=== PATIENT | female | born 1995 ===

== ENCOUNTER 2023-03-12 11:23 | Inpatient (IN) ==
[2023-03-16] MEDS ORDERED: LACTATED RINGER'S 1,000 ML IV PRN (17:12)
[2023-03-16] MEDS ORDERED: LIDOCAINE 1% LOCAL 20 ML VIAL INFIL PRN (17:12)
[2023-03-16] MEDS ORDERED: OXYTOCIN 30 UNITS/500 ML BAG IV PRN ×2 (17:12)
[2023-03-16 17:49] LABS: Hematocrit (blood only) 34.9 % (37.0-47.0); Hemoglobin 12.2 g/dl (12.0-16.0); Mean Corpuscular Hemoglobin 31.4 pg (25.0-34.0); Mean Corpuscular Volume 89.9 fL (80.0-100.0); Mean Platelet Volume 12.3 fL (9.4-12.4); Platelet Count 196 K/uL (130-400); RDW Coefficient of Variation 12.3 % (11.5-14.5); Red Blood Count 3.88 M/uL (4.20-5.40); White Blood Count 9.42 K/ul (4.8-10.8)
--- NOTE | 2023-03-16 17:58 | History & Physical Report ---
Date of Service March 16, 2023 Assessment & Plan (1) Polyhydramnios affecting : Plan: Admit for induction of labor. Discussed plans with patient. She is agreeable. Labs/EFM/toco. IV. Will start pitocin . Admission and Anticipated Discharge Date Admission Date: March 16, 2023 History of Present Illness Chief Complaint: IOL - polyhydramnios Primary Care Provider: EMILY Graham 28yo @ 41 0, was at office today for NST - not reactive, therefore BPP was done. Finding of 10cm DVP, therefore recommended for induction of labor today for polyhydramnios. Allergies Allergy/AdvReac Type Severity Reaction Status Date / Time No Known Allergies Allergy Verified 03/16/23 14:53 Home Medications Medication Instructions Recorded Confirmed Type prenat.vits,toni,qyf-tatp-aspme 1 tab PO DAILY 07/23/22 03/16/23 History Patient History Medical History (Updated 03/16/23 @ 17:59 by Luly Davila, ) No pertinent past medical history Surgical History S/P dilation and curettage S/P wisdom tooth extraction Social History (Updated 03/16/23 @ 17:02 by Meaghan Reyes RN) Smoking Status: Never smoker Do You Dip or Chew Tobacco: No; Hx Alcohol Use: No Hx Substance Use: No Preferred Language: Vietnamese Visual Impairment: No Limitations Hearing Ability: Normal Beliefs That Will Affect Care: None marital status: marital status details: Gerald (28) [phone] Current Living Situation: Spouse Current Living Situation Comment: lives with spouse, 2 children, 1 cat, pt changing litter current occupational status: employed current occupation: [employer] Feels Safe at Home: Yes Safety Concerns: Feels Safe At This Time Diet: regular Gender Identity: Female Review of Systems All systems reviewed & are unremarkable except as noted in HPI & below Physical Exam Physical Exam: 3-4/50/high, bulging membranes FHT Cat 1 [place] Q 2 min Constitutional: WD/WN, vitals as above Respiratory: normal respiratory effort, lungs clear to auscultation no respiratory distress Cardiovascular: Rate/Rhythm: regular rate and regular rhythm Gastrointestinal (Abdomen): Inspection/Auscultation: abdomen normal to inspection Percussion/Palpation: abdomen soft; abdomen nontender Gravid. No s/s chorio or abruption. Skin: no rashes, warm and dry Psychiatric: A+Ox3, euthymic affect Results & Data Vital Signs (Past 12 Hours) Vital Signs Temp Pulse Resp BP 03/16/23 16:56 36.9 C 80 20 118/73 Coding Level of Care Code None Diagnoses Polyhydramnios affecting O40.9XX0
--- NOTE | 2023-03-16 20:35 | Labor Progress Brief Note ---
Date of Service March 16, 2023 Subjective Uncomfortable with ctx. FHT 140s, early decels with ctx. SVE 5-6/100/-2, AROM during cervix exam for meconium stained fluid Anticipate . Assessment & Plan Admission and Anticipated Discharge Date Admission Date: March 16, 2023 Results & Data Vital Signs (Past 12 Hours) Vital Signs Temp Pulse Resp BP 03/16/23 18:05 36.9 C 20 03/16/23 20:19 75 03/16/23 20:19 129/74 03/16/23 20:03 67 03/16/23 20:03 97/54 L 03/16/23 19:03 18 03/16/23 19:03 36.5 C 18 03/16/23 19:50 70 03/16/23 19:50 117/76 03/16/23 19:34 82 03/16/23 19:34 120/67 03/16/23 19:18 78 03/16/23 19:18 112/67 03/16/23 19:03 85 03/16/23 19:03 118/81 03/16/23 18:49 75 03/16/23 18:49 114/77 03/16/23 18:34 71 03/16/23 18:34 110/59 L 03/16/23 18:19 85 03/16/23 18:19 116/81 03/16/23 18:03 87 03/16/23 18:03 126/74 03/16/23 16:56 36.9 C 80 20 118/73 Coding Level of Care Code None Diagnoses
[2023-03-16] MEDS ORDERED: SODIUM CHLORIDE 0.9% PF INJ 10 ML VIAL ONE (21:15)
[2023-03-16] MEDS ORDERED: ePHEDrine sulfate 50 MG/ML AMP ONE (21:15)
[2023-03-16] MEDS ORDERED: fentaNYL citrate PF 100 MCG/2 ML VIAL ONE (21:15)
[2023-03-16] MEDS ORDERED: fentaNYL 2MCG/ML ROPIVACAINE 1.25MG/ML 100 ML BAG EPI ONE (21:15)
[2023-03-16] MEDS ORDERED: LIDOCAINE 2%/EPINEPHRINE 1:200,000 20 ML PF ONE (21:15)
[2023-03-16] MEDS ORDERED: BUPIVACAINE 0.25% PF 30 ML VIAL ONE (21:15)
--- NOTE | 2023-03-16 21:37 | Delivery Summary ---
Vaginal Delivery Summary Date of Service March 16, 2023 Vaginal Delivery Summary [facility] Vaginal Delivery Summary: Pre-delivery diagnoses: 28yo @ 41 0/7, IOL for polyhydramnios, post- dates Post-delivery diagnoses: same Procedure: spontaneous vaginal delivery Surgeon: Luly Davila DO Complications: none Findings: Viable female . Apgars: . Weight pending, please see nursery records. Estimated blood loss: 300ml Description of delivery: The patient progressed to complete without anesthesia. She then began to push. She spontaneously vaginally delivered a viable from the cephalic presentation. The head delivered in DEBRA position. Nuchal x 4, easily reduced. The anterior shoulder delivered, followed by the posterior shoulder, followed by the body. The baby was placed on mother's abdomen and a spontaneous cry was heard. Delayed cord clamping was employed, and the cord was doubly clamped and cut. Cord blood was obtained. The placenta was delivered spontaneously intact with a 3-vessel cord. The uterus and vagina were swept of clots and debris. IV pitocin was given. The uterus became firm. The cervix, vagina, and perineum were inspected and no lacerations were noted. Excellent hemostasis was observed. The mother and baby are recovering in stable and good condition in the room. Sponge and instrument counts were correct x 2. Luly Davila DO [facility] Vaginal Delivery Charge Vaginal Delivery Codes: 76076 global code for the antepartum, delivery, and post- Delivery Type Details: [facility]
[2023-03-17] MEDS ORDERED: BENZOCAINE 20% SPRY 85 APPLN/85 GM CAN EXT PRN (00:04)
[2023-03-17] MEDS ORDERED: HYDROCORTISONE ACETATE 25 MG SUPP PR PRN (00:04)
[2023-03-17] MEDS ORDERED: IBUPROFEN 600 MG TAB PO PRN (00:04)
[2023-03-17] MEDS ORDERED: OXYTOCIN 30 UNITS/500 ML BAG IV PRN (00:04)
[2023-03-17] MEDS ORDERED: ACETAMINOPHEN 325 MG TAB PO PRN (00:04)
[2023-03-17] MEDS ORDERED: oxyCODONE/ACETAMINOPHEN 5mg/325mg TAB PO PRN (00:04)
[2023-03-17] MEDS ORDERED: bisacodyL 10 MG SUPP PR PRN (00:04)
[2023-03-17] MEDS ORDERED: DIPHTHERIA/TETANUS/PERTUSSIS Vaccine (Tdap, Age 7+yrs) 0.5mL SYR/VL IM ONE (00:04)
--- NOTE | 2023-03-17 06:58 | Obstetrical Progress Note ---
Date of Service <Melissa Newsome MD - Last Filed: 03/17/23 08:16> March 17, 2023 Assessment & Plan <Melissa Newsome MD - Last Filed: 03/17/23 08:16> (1) Spontaneous vaginal delivery: Patient with the above mentioned history and findings was evaluated at bedside and found awake, alert, oriented in all spheres, afebrile, and in no acute distress. Due to physical exam findings of left lower extremity pain along with history of , will order left LE venous doppler to r/o DVT. Otherwise, patient is doing well clinically. Therefore, will encourage ambulation as tolerated and will resume regular diet. Will continue monitoring pain levels and management with current regimen. Patient is encouraged to breastfeed and to notify changes in normal lochia such as excessive bleeding (using more than 1 pad per hour), foul smell, or purulent appearance. All questions were answered. <Luly Davila DO - Last Filed: 03/17/23 08:56> (1) Spontaneous vaginal delivery: Subjective <Melissa Newsome MD - Last Filed: 03/17/23 08:16> Alanis is a 28 y/o female who is now PPD # 1 following at 41 0/7 weeks. Reports feeling well overall this morning. Refers moderate abdominal cramping & 3/10 pain well managed on analgesics. Voiding spontaneously. Tolerating meals overnight and able to ambulate some. She has not passed gas or had a bowel movement yet.. Some persistent lochia with some improvement this morning. . She is blood type O positive with Hb at 12.3. She is GBS negative and rubella immune. Constitutional: no fever, no chills or no sweats Denies shortness of breath or difficulty breathing Cardiovascular: no chest pain or no palpitations Breast: no breast pain Genitourinary (female): no dysuria Neurologic: no headache(s) Denies changes in vision Physical Exam <Melissa Newsome MD - Last Filed: 03/17/23 08:16> General: Alert. Oriented to person, time, and place. Afebrile. No acute distress. Eyes: pupils equal and reactive to light bilaterally, extraocular movements intact. Cardiac: Regular rate and rhythm, no murmurs/rubs/gallops. Respiratory: Clear to auscultation bilaterally a/p, no wheezes/rales/rhonchi. No increased work of breathing. Symmetrical chest rise. No respiratory distress. Abdomen: Soft, nontender, nondistended. Bowel sounds present. Uterus: Uterine fundus firm, mildly tender, and palpable below umbilicus. Lower Extremities: Mild lower extremity swelling bilaterally without pitting. Left calf pain with passive dorsiflexion of foot. No abnormal findings in right extremity. Psych: Euthymic affect. Mood and affect congruence. Regular speech rate and content. Results & Data <Melissa Newsome MD - Last Filed: 03/17/23 08:16> Vital Signs (Past 12 Hours) Vital Signs Temp Pulse Pulse Resp BP BP Pulse Ox 03/17/23 04:30 36.9 C 71 18 112/74 98 03/17/23 00:05 36.7 C 82 18 112/72 98 03/16/23 21:35 36.8 C 18 03/16/23 23:35 81 03/16/23 23:35 122/72 03/16/23 23:20 88 03/16/23 23:20 119/71 03/16/23 23:05 81 03/16/23 23:05 116/70 03/16/23 22:50 85 03/16/23 22:50 124/70 03/16/23 22:35 173 H 03/16/23 22:35 100/74 03/16/23 22:20 83 03/16/23 22:20 129/76 03/16/23 22:05 76 03/16/23 22:05 125/74 03/16/23 21:50 81 03/16/23 21:50 124/61 03/16/23 21:35 84 03/16/23 21:35 116/57 L 03/16/23 21:23 98 03/16/23 21:23 90 03/16/23 21:21 90 03/16/23 21:21 82 03/16/23 21:20 76 03/16/23 21:20 143/78 H 03/16/23 21:18 97 03/16/23 21:18 93 H 03/16/23 21:04 73 03/16/23 21:04 128/84 03/16/23 20:49 76 03/16/23 20:49 130/85 07/31/23 20:30 18 03/16/23 20:30 36.6 C 18 03/16/23 20:19 75 03/16/23 20:19 129/74 03/16/23 20:03 67 03/16/23 20:03 97/54 L 03/16/23 19:03 18 03/16/23 19:03 36.5 C 18 03/16/23 19:50 70 03/16/23 19:50 117/76 03/16/23 19:34 82 03/16/23 19:34 120/67 03/16/23 19:18 78 03/16/23 19:18 112/67 03/16/23 19:03 85 03/16/23 19:03 118/81 O2 Del Method 03/17/23 04:30 Room Air 03/17/23 00:05 Room Air 03/16/23 21:35 03/16/23 23:35 03/16/23 23:35 03/16/23 23:20 03/16/23 23:20 03/16/23 23:05 03/16/23 23:05 03/16/23 22:50 03/16/23 22:50 03/16/23 22:35 03/16/23 22:35 03/16/23 22:20 03/16/23 22:20 03/16/23 22:05 03/16/23 22:05 03/16/23 21:50 03/16/23 21:50 03/16/23 21:35 03/16/23 21:35 03/16/23 21:23 03/16/23 21:23 03/16/23 21:21 03/16/23 21:21 03/16/23 21:20 03/16/23 21:20 03/16/23 21:18 03/16/23 21:18 03/16/23 21:04 03/16/23 21:04 03/16/23 20:49 03/16/23 20:49 03/16/23 20:30 03/16/23 20:30 03/16/23 20:19 03/16/23 20:19 03/16/23 20:03 03/16/23 20:03 03/16/23 19:03 03/16/23 19:03 03/16/23 19:50 03/16/23 19:50 03/16/23 19:34 03/16/23 19:34 03/16/23 19:18 03/16/23 19:18 03/16/23 19:03 03/16/23 19:03 <Luly Davila DO - Last Filed: 03/17/23 08:56> Co-Signing Physician Notes Resident Physician Supervision Note: I was present with Dr. Newsome during the history and exam. I discussed the case with the resident and agree with the findings and plan as documented in the note. Any exceptions or clarifications are listed here: PPD1. Left calf pain, will obtain imaging to r/o DVT. Would like DC home if neg. Reviewed DC instructions. Documented By: Luly Davila DO Resident Activity Tracking <Melissa Newsome MD - Last Filed: 03/17/23 08:16> Resident Involvement: Resident Care Provided Care Provided: OB Delivery
[2023-03-17 07:09] LABS: Hematocrit (blood only) 35.4 % (37.0-47.0); Hemoglobin 12.3 g/dl (12.0-16.0)
[2023-03-17] MEDS ORDERED: PRENATAL VITAMIN 1 TAB PO SCH (08:00)
--- NOTE | 2023-03-17 08:37 | Ultrasound Report ---
ULTRASOUND LEFT LOWER EXTREMITY VENOUS CLINICAL HISTORY: Left leg pain. . COMPARISON STUDY: No priors. TECHNIQUE: Real-time, grayscale, and color Doppler sonography of the deep veins of the left lower ext remity was performed from the inguinal crease to the calf. Compression and augmentation were utilized . FINDINGS: There is no sonographic evidence of deep venous thrombosis identified in the left lower ext remity. The common femoral, superficial femoral, and popliteal veins are patent and normally compress ible. The greater saphenous vein and the profunda femoris vein at the junction with the common femora l vein are clear. The visualized calf veins are patent. No sonographic abnormality is identified at t he site of interest in the posterior calf. IMPRESSION: There is no sonographic evidence of deep venous thrombosis identified in the left lower e xtremity. ACT 112: Negative or not required by law. Electronically signed by: Pedro Ny M.D. 03/17/2023 8:36 AM
[2023-03-17] MEDS: DOCUSATE SODIUM 100 MG CAP PO SCH ×2 (08:43→20:11)
[2023-03-17] MEDS ORDERED: bisacodyL 5 MG TABEC PO SCH (20:00)
== END 2023-03-17 23:16 | disposition home or self-care (01) | DRG 807 ==
LOC: 4S1 03-16 16:51 → 4E2 03-17 00:04
DX: O48.0 Post-term pregnancy; O76 Abnormality in fetal heart rate and rhythm complicating labor and delivery; O77.0 Labor and delivery complicated by meconium in amniotic fluid; Z37.0 Single live birth; O69.81X0 Labor and delivery complicated by cord around neck, without compression, not applicable or unspecified; Z3A.41 41 weeks gestation of pregnancy; O99.893 Other specified diseases and conditions complicating puerperium; M79.662 Pain in left lower leg; O40.3XX0 Polyhydramnios, third trimester, not applicable or unspecified